=== PATIENT | male | born 1940 | race Caucasian/White ===

== ENCOUNTER 2016-06-28 09:59 | Emergency (ER) | payer MEDICARE, OTHER ==
[2016-06-28 10:51] VITALS: BP 127/75
[2016-06-28] MEDS ORDERED: Gelfoam 12-7 ADSORBABL SPONGE* 1 EA SPONGE TOPICAL ONE (12:18)
[2016-06-28] MEDS ORDERED: Gelfoam 12-7 ADSORBABL SPONGE* 1 EA SPONGE ONE (12:27)
--- NOTE | 2016-06-28 15:02 | UC ---
Cody Ansari Claudia, scribed for Tamy Castaneda DO on 06/28/16 at 1205 . Laceration HPI - HPI Summary HPI Summary: 75 year old male presents to the [facility] with several avulsions to his 2nd and 3rd digits of his right hand.He notes that he was trying to throw out ;liquid out of a glass outside and he hit his hand with the glass in it against acrylic glass door. Pt denies feeling any foreign body in the cuts. Pt denies any fever , chills, abd pain, N/V/D, CP, SOB, cough. He notes that there is mild discomfort of sharp pain over the abrasions. Pt takes a daily baby aspirin - History Of Current Complaint Chief Complaint: UCLaceration Stated Complaint: HAND LACERATION Hx Obtained From: Patient Laceration Location: Hand - right Mechanism Of Injury: Sharp Trauma Onset/Duration: Sudden Onset, Lasting Hours - 10:00am today Severity: Moderate Aggravating Factors: Movement Hands: 1 - skin avulsion 2 - supereficial lac 3 - lac from 1 week ago. healing well. 4 - superficial lac 5 - superfical lac Related History: Dominant Hand Right - Allergies/Home Medications Allergies/Adverse Reactions: Allergies Allergy/AdvReac Type Severity Reaction Status Date / Time contrast dye for CT Allergy Intermediate Rash And Uncoded 06/28/16 10:29 Itching Home Medications: Home Medications Aspirin Low Dose CHEW TAB* [Aspirin Low Dose TAB*] 1 tab PO QPM 06/28/16 [ History Confirmed 06/28/16] Multiple Vitamin [Multi Vitamin] 1 tab PO DAILY 06/28/16 [History Confirmed ] Psyllium [Metamucil Original Textur] 06/28/16 [History] Ramipril CAP* [Altace CAP*] 1 tab PO BID 06/28/16 [History Confirmed 06/28/16] PMH/Surg Hx/FS Hx/Imm Hx Previously Healthy: Yes Endocrine History Of: Denies: Diabetes, Thyroid Disease Cardiovascular History Of: Reports: Cardiac Disorders - HEART VALVE MURMUR, Hypertension Respiratory History Of: Denies: COPD, Asthma GI/ History Of: Denies: Ulcer - Surgical History Surgical History: Yes Surgery Procedure, Year, and Place: prostate approx 2009 - Family History Known Family History: Positive: Cardiac Disease Negative: Hypertension, Diabetes - Social History Occupation: Employed Full-time Lives: With Family Alcohol Use: Occasionally Substance Use Type: None Smoking Status (MU): Never Smoked Tobacco Household Exposure Type: Pipe - Immunization History Most Recent Tetanus Shot: NEEDS A TETANUS - DOES NOT REMEMBER Review of Systems Constitutional: Negative - NO FEVER CHILLS Skin: Other - laceration to the right hand Eyes: Negative ENT: Negative Respiratory: Negative - NO SOB COUGH Cardiovascular: Negative - NO CP Gastrointestinal: Negative - NO ABD PAIN N/V/D Genitourinary: Negative Motor: Negative Neurovascular: Negative Musculoskeletal: Negative Neurological: Negative Psychological: Negative All Other Systems Reviewed And Are Negative: Yes Physical Exam Triage Information Reviewed: Yes Appearance: Well-Appearing, No Pain Distress, Well-Nourished Vital Signs: Initial Vital Signs Temp 98.4 F 06/28/16 10:31 Pulse 64 06/28/16 10:31 Resp 16 06/28/16 10:31 BP 127/75 06/28/16 10:31 Pulse Ox 100 06/28/16 10:31 Vital Signs Reviewed: Yes Eye Exam: Normal Eyes: Positive: Conjunctiva Clear. Negative: Discharge ENT Exam: Normal ENT: Positive: Hearing grossly normal. Negative: Muffled/hoarse voice Neck exam: Normal Neck: Positive: Supple Respiratory Exam: Normal Respiratory: Positive: Lungs clear, Normal breath sounds, No respiratory distress, No accessory muscle use Cardiovascular: Positive: RRR, No Murmur Musculoskeletal Exam: Normal Musculoskeletal: Positive: Strength Intact Neurological Exam: Normal Neurological: Positive: Alert, Muscle Tone Normal Psychological Exam: Normal Psychological: Positive: Age Appropriate Behavior Skin Exam: Other - several lacerations including 1 to the 2nd digit, thenar eminence and 4th digit. 1 skin avlusion to the third digit Laceration Repair - Laceration Repair 1 Description: Linear Laceration Size After Repair: Length (cm) - 1cm superificial on the anterior portion of the proximal 2ns digit Modified For Repair: No Cleansing Completed Via Routine Prep: Yes Closure Material: Skin Adhesive, SteriStrips 2 Description: Linear Laceration Size After Repair: Length (cm) - .25cm to the anterior portion of the the hypothenar eminence Cleansing Completed Via Routine Prep: Yes Closure Material: Skin Adhesive, SteriStrips Closure Method: Single Layer 3 Description: Linear Laceration Size After Repair: Length (cm) - .5 cm to the anterior aspect of the proximal portion of the 4th digit Closure Material: Skin Adhesive, SteriStrips Closure Method: Single Layer Laceration Course/Dx - Course/Dx Course Of Treatment: In addition to the skin adhesive pt received gelfoam. - Differential Dx - Laceration/Wound Provider Diagnoses: finger lac, skin avulsion Discharge - Discharge Plan Condition: Stable Disposition: HOME Patient Education Materials: Laceration (ED), Finger Laceration (ED), Skin Avulsion (ED), Skin Adhesive Care (ED) Referrals: Florin Mena MD [Primary Care Provider] - (follow up in 3-5 days) Additional Instructions: GELFOAM Sterile Compressed Sponge is a site medical director intended for application to bleeding surfaces as a hemostatic. It is a water-insoluble, off-white, nonelastic, porous, pliable product prepared from purified porcine skin, Gelatin SHELTER Granules and Water for Injection, SHELTER. It may be cut without fraying and is able to absorb and hold within its interstices, many times its weight of blood and other fluids. GELFOAM Sterile Compressed Sponge has hemostatic properties. While its mode of action is not fully understood, its effect appears to be more physical than the result of altering the blood clotting mechanism. If you develop and fevers, swelling, redness or drainage please go to the Emergency Room. The documentation as recorded by the Cody morgan Claudia accurately reflects the service I personally performed and the decisions made by , Tamy Castaneda DO.
== END 2016-06-28 13:09 | disposition home or self-care (01) ==
LOC: UCEAST 09:59
DX: S61.218A Laceration without foreign body of other finger without damage to nail, initial encounter (principal); W25.XXXA Contact with sharp glass, initial encounter; Y92.9 Unspecified place or not applicable; Z79.82 Long term (current) use of aspirin; I10 Essential (primary) hypertension
CPT/HCPCS: 99214; A9270-GY; G0463

== ENCOUNTER 2016-11-04 09:54 | Day surgery (SDC) | payer MEDICARE, OTHER ==
[~2016-11-04 09:54] MED LIST: Acetaminophen TAB* 325 MG PO PRN; Buffered Lidocaine 0.9% SYRIN* 5 ML/SYR SYRINGE INTRADERM ONE; Buffered Lidocaine 0.9% SYRIN* 5 ML/SYR SYRINGE ONE; Cyclopentolate 1% OPTH.SOL* 2 ML BTL ONE; Flurbiprofen 0.03% OPTH.SOL* 2.5 ML BTL ONE; Lidocaine 1% MPF wEPI 200,000* 30 ML SDV ONE; Lidocaine 1% MPF* 2 ML VIAL ONE; Neomycin/Polymy/Dex OPTH.SUSP* MAXITROL 0.1% 5 ML ONE; Phenylephrine 2.5% OPTH.SOL* 2 ML BTL ONE; Povidone Iodine 5% OPTH* 30 ML BTL ONE; Proparacaine 0.5% OPHTH.SOL* 15 ML BTL ONE; acetaZOLAMIDE TAB* 250 MG ONE
[2016-11-04] MEDS ORDERED: Midazolam* 1 MG/ML 2 ML VIAL (2 MG) ONE (12:10)
[2016-11-04 12:57] VITALS: BP 143/68
--- NOTE | 2016-11-04 13:11 | OP ---
DATE OF OPERATION: 11/04/2016 - [facility] DATE OF : 1940. SURGEON: Perfecto Armstrong M.D. PREOPERATIVE DIAGNOSIS: Cataract left eye. POSTOPERATIVE DIAGNOSIS: Cataract left eye. OPERATIVE PROCEDURE: Phacoemulsification left eye with IOL. DESCRIPTION OF PROCEDURE: The patient was brought to the operating room after being given 1/2% Alcaine with epinephrine drops in the preoperative area. The eye was prepped and draped in the usual sterile fashion. Sterile drape and eyelid speculum were placed. Again, topical 1/2% Alcaine with epinephrine was given. A paracentesis incision was made at the 3 o'clock position with the No.75 blade. Clear cornea incision 2.2 x 2.2-mm was created at the 6 o'clock position starting at the anterior limbus using the 2.2-mm keratome. The anterior chamber was irrigated with 0.4 mL of 1% non-preservative intracameral lidocaine and filled with DisCoVisc. A capsulorrhexis was completed using the cystotome and the Utrata forceps. Hydrodissection was performed with balanced salt solution. The lens nucleus was removed with the Phacoemulsification handpiece without incident. Cortex was removed with the irrigation-aspiration handpiece. The capsular bag was re-inflated using DisCoVisc and an SN60WF 16.5 implant was inserted with the shooter. The irrigation-aspiration handpiece was used to remove all residual DisCoVisc. The eye was refilled with balanced salt solution and the wound checked and found to be watertight. Topical Maxitrol drops were given. [id number]/[facility] #: [id number] [facility]
== END 2016-11-04 13:07 | disposition home or self-care (01) ==
LOC: OREAST 09:54
PROVIDERS: ATTEND Specialist
DX: H25.813 Combined forms of age-related cataract, bilateral (principal); H43.813 Vitreous degeneration, bilateral; Z79.82 Long term (current) use of aspirin; Z91.041 Radiographic dye allergy status; I10 Essential (primary) hypertension; G47.30 Sleep apnea, unspecified; F03.90 Unspecified dementia, unspecified severity, without behavioral disturbance, psychotic disturbance, mood disturbance, and anxiety; Z85.46 Personal history of malignant neoplasm of prostate
CPT/HCPCS: A9270-GY; J2001; J2250; V2632

== ENCOUNTER 2016-11-11 07:48 | Day surgery (SDC) | payer MEDICARE, OTHER ==
[~2016-11-11 07:48] MED LIST changes: -Buffered Lidocaine 0.9% SYRIN* 5 ML/SYR SYRINGE ONE; -Cyclopentolate 1% OPTH.SOL* 2 ML BTL ONE; -Flurbiprofen 0.03% OPTH.SOL* 2.5 ML BTL ONE; -Lidocaine 1% MPF wEPI 200,000* 30 ML SDV ONE; -Lidocaine 1% MPF* 2 ML VIAL ONE; -Neomycin/Polymy/Dex OPTH.SUSP* MAXITROL 0.1% 5 ML ONE; -Phenylephrine 2.5% OPTH.SOL* 2 ML BTL ONE; -Povidone Iodine 5% OPTH* 30 ML BTL ONE; -Proparacaine 0.5% OPHTH.SOL* 15 ML BTL ONE; -acetaZOLAMIDE TAB* 250 MG ONE
[2016-11-11] MEDS ORDERED: Midazolam* 1 MG/ML 2 ML VIAL (2 MG) ONE (09:39)
[2016-11-11 10:23] VITALS: BP 110/71
[2016-11-11] MEDS ORDERED: Acetaminophen TAB* 325 MG ONE (10:24)
--- NOTE | 2016-11-11 10:43 | OP ---
DATE OF OPERATION: 11/11/2016. DATE OF : 1940. SURGEON: Perfecto Armstrong M.D. PREOPERATIVE DIAGNOSIS: Cataract right eye. POSTOPERATIVE DIAGNOSIS: Cataract right eye. OPERATIVE PROCEDURE: Phacoemulsification right eye with IOL. PROCEDURE: The patient was brought to the operating room after being given 1/2% Alcaine with epinep hrine drops in the preoperative area. The eye was prepped and draped in the usual sterile fashion. Sterile drape and eyelid speculum were placed. Again, topical 1/2% Alcaine with epinephrine was gi hari. A paracentesis incision was made at the 9 o'clock position with the No.75 blade. Clear cornea incision 2.2 x 2.2-mm was created at the 12 o'clock position starting at the anterior limbus using the 2.2-mm keratome. The anterior chamber was irrigated with 0.4 mL of 1% non-preservative intracam eral lidocaine and filled with DisCoVisc. A capsulorrhexis was completed using the cystotome and th e Utrata forceps. Hydrodissection was performed with balanced salt solution. The lens nucleus was r emoved with the Phacoemulsification handpiece without incident. Cortex was removed with the irrigat ion-aspiration handpiece. The capsular bag was re-inflated using DisCoVisc and an SN60WF 16.5 impla nt was inserted with the shooter. The irrigation-aspiration handpiece was used to remove all residu al DisCoVisc. The eye was refilled with balanced salt solution and the wound checked and found to b e watertight. Topical Maxitrol drops were given. [id number]/[facility] #: [id number]
[2016-11-11] MEDS ORDERED: acetaZOLAMIDE TAB* 250 MG ONE (13:30)
[2016-11-11] MEDS ORDERED: Lidocaine 1% MPF* 2 ML VIAL ONE (13:30)
[2016-11-11] MEDS ORDERED: Povidone Iodine 5% OPTH* 30 ML BTL ONE (13:30)
[2016-11-11] MEDS ORDERED: Neomycin/Polymy/Dex OPTH.SUSP* MAXITROL 0.1% 5 ML ONE (13:30)
[2016-11-11] MEDS ORDERED: Phenylephrine 2.5% OPTH.SOL* 2 ML BTL ONE (13:30)
[2016-11-11] MEDS ORDERED: Flurbiprofen 0.03% OPTH.SOL* 2.5 ML BTL ONE (13:30)
[2016-11-11] MEDS ORDERED: Cyclopentolate 1% OPTH.SOL* 2 ML BTL ONE (13:30)
[2016-11-11] MEDS ORDERED: Lidocaine 2% EPI 1:200000 MPF* 20 ML VIAL ONE (13:30)
[2016-11-11] MEDS ORDERED: Proparacaine 0.5% OPHTH.SOL* 15 ML BTL ONE (13:31)
[2016-11-11] MEDS ORDERED: Buffered Lidocaine 0.9% SYRIN* 5 ML/SYR SYRINGE ONE (13:31)
== END 2016-11-11 10:36 | disposition home or self-care (01) ==
LOC: OREAST 07:48
PROVIDERS: ATTEND Specialist
DX: H25.811 Combined forms of age-related cataract, right eye (principal); H43.813 Vitreous degeneration, bilateral; I10 Essential (primary) hypertension; G47.33 Obstructive sleep apnea (adult) (pediatric); Z79.82 Long term (current) use of aspirin
CPT/HCPCS: A9270-GY; J2250; V2632